=== PATIENT | female | born 1970 | race Caucasian/White ===

== ENCOUNTER → 2017-01-10 | Outpatient (CLI) | payer OTHER ==
--- NOTE | 2017-01-10 15:00 | RAD ---
DATE: 01/10/2017 EXAM: BREAST LEFT, DIGITAL DIAGNOSTIC LT HISTORY: 6 month follow-up of nodule left breast. COMPARISON: 04/06/2016 and 04/21/2016 This study was interpreted with the benefit of Computerized Aided Detection (CAD). The breast parenchyma shows scattered fibroglandular densities. Breast parenchyma level B. FINDINGS: MLO and CC digital mammograms left breast were obtained. Additionally a real-time ultrasound examination of the left breast at the 10:00 position was performed. Comparison studies are dated 04/06/2016 and 04/21/2016. The nodular density within the medial aspect of the left breast is less prominent on today's mammogram. On ultrasound a 5 mm rounded anechoic structure is seen at the 10:00 position of the left breast which is consistent with a cyst. It is unchanged from the patient's previous ultrasound. I would recharacterize the patient's mammograms as a BI-RADS Category 2 benign findings with recommendation for routine yearly screening mammography for follow-up. IMPRESSION: BI-RADS Category 2 benign findings. There is no mammographic evidence of malignancy. Routine yearly screening mammography is recommended for follow-up. BI-RADS CATEGORY: 2 BENIGN FINDING(S) RECOMMENDED FOLLOW-UP: 12M 12 MONTH FOLLOW-UP PQRS compliance statement: Patient information was entered into a reminder system with a target due date 04/06/2017 for the next mammogram. Mammography is a sensitive method for finding small breast cancers, but it does not detect them all and is not a substitute for careful clinical examination. A negative mammogram does not negate a clinically suspicious finding and should not result in delay in biopsying a clinically suspicious abnormality. "Our facility is accredited by the [employer] Mammography Program."
== END | disposition home or self-care (01) ==
LOC: KCIC MAMMO 13:45
PROVIDERS: ATTEND Obstetrics & Gynecology
DX: N63 Unspecified lump in breast (principal)
CPT/HCPCS: 76641; G0206; 77065